=== PATIENT | male | born 1960 ===

== ENCOUNTER 2020-07-21 07:34 | Emergency (ER) | payer OTHER ==
[~2020-07-21] VITALS: Ht 167.6 cm; Wt 90.7 kg
[2020-07-21] MEDS ORDERED: GLIPIZIDE ER10 MG PO (07:52)
[2020-07-21] MEDS ORDERED: CARDURA1 MG PO (07:52)
[2020-07-21] MEDS ORDERED: LOSARTAN POTASS25 MG PO (07:52)
[2020-07-21] MEDS ORDERED: HYDROCHLOROTHIA25 MG PO (07:53)
[2020-07-21] MEDS ORDERED: FOLIC ACID1 MG PO (07:53)
[2020-07-21] MEDS ORDERED: SYNTHROID200 MCG PO (07:54)
[2020-07-21] MEDS ORDERED: ACTIGALL300 MG PO (07:54)
== END 2020-07-21 14:55 | disposition home or self-care (01) ==
LOC: ER 07:34
DX: E11.649 Type 2 diabetes mellitus with hypoglycemia without coma (principal); R55 Syncope and collapse; Z03.818 Encounter for observation for suspected exposure to other biological agents ruled out